=== PATIENT | female | born 1935 | race Caucasian/White ===

== ENCOUNTER 2021-09-19 15:19 | Inpatient (IN) ==
[2021-09-19] MEDS ORDERED: Aspirin 325 MG TABLET PO ONE (15:29)
[2021-09-19 16:14] LABS: Bilirubin,Urine Negative (Negative); Blood,Urine Negative (Negative); Clarity,Urine Clear (Clear); Color,Urine Colorless (Yellow); Glucose,Urine (UA) Normal (Normal); Ketones,Urine Negative (Negative); Leukocyte Esterase,Urine Negative (Negative); Nitrite,Urine Negative (Negative); Protein,Urine Negative (Neg-Trace); Specific Gravity,Urine 1.007 (1.010-1.025); Urobilinogen,Urine Normal (Normal)
[2021-09-19 16:19] LABS: Basophils % 0.2 %; Eosinophils # 0.1 K/mcL (0.0-0.6); Eosinophils % 0.9 %; Hematocrit 46.5 % (35.3-44.9); Hemoglobin 15.2 g/dL (11.5-15.4); Immature Granulocytes % 0.7 % (0-4); Lymphocytes # 1.3 K/mcL (0.6-4.6); Lymphocytes % 10.3 %; Mean Corpuscular HGB Conc 32.7 g/dL (31.6-35.5); Mean Corpuscular Hemoglobin 32.9 pg (28.0-33.3); Mean Corpuscular Volume 100.6 fL (83.0-100.0); Mean Platelet Volume 8.7 fL (9.4-12.4); Monocytes # 0.5 K/mcL (0.0-1.3); Monocytes % 4.2 %; Neutrophils # 10.5 K/mcL (1.6-8.9); Platelet Count 200 K/mcL (140-400); Red Blood Count 4.62 M/mcL (3.82-4.97); Red Cell Distribution Width 13.4 % (11.5-14.5); Segmented Neutrophils % 83.7 %; White Blood Count 12.6 K/mcL (4.3-11.1)
[2021-09-19 16:27] LABS: INR 0.9; Prothrombin Time 10.4 Seconds (9.4-12.1)
[2021-09-19 16:30] LABS: Activated Partial Thrombo Time 27.3 Seconds (26.0-36.0)
[2021-09-19 16:37] LABS: BUN/Creatinine Ratio 16 (6-26); Blood Urea Nitrogen 16 mg/dL (8-23); Calcium 9.1 mg/dL (8.6-10.3); Carbon Dioxide 32 mEq/L (23-29); Chloride 101 mEq/L (98-107); Glucose 135 mg/dL (70-105); Magnesium 1.8 mg/dL (1.6-2.6); Osmolality,Calculated 295 (280-300); Potassium 3.9 mEq/L (3.5-5.1); Sodium 141 mEq/L (136-145); Troponin I < 0.03 ng/mL (< 0.04); eGFR For African Americans > 60 (> 60); eGFR For Non-African Americans 53 (> 60)
[2021-09-19 16:51] LABS: Thyroid Stimulating Hormone 2.566 mcIU/mL (0.340-5.600)
[2021-09-19] MEDS ORDERED: Naloxone 0.4 MG/ML INJ IVP PRN (19:56)
[2021-09-19] MEDS ORDERED: Acetaminophen 325 MG TABLET PO PRN (19:56)
[2021-09-19] MEDS ORDERED: Melatonin 3 MG TABLET PO PRN (19:56)
[2021-09-19] MEDS ORDERED: *HR* HYDROcodone/Acet 5/325 mg TABLET PO PRN (19:56)
[2021-09-19] MEDS ORDERED: *HR* OxyCODONE Immed Rel 5 MG TABLET PO PRN (19:56)
[2021-09-19] MEDS ORDERED: Ondansetron ODT 4 MG TAB.RAPDIS SL PRN (19:56)
[2021-09-19] MEDS ORDERED: Perflutren Lipid Microsphere 1.3 ML in 0.9 % Sodium Chloride 8.7 ML IVP PRN (20:01)
[2021-09-19] MEDS: 0.9 % Sodium Chloride 1,000 ML IVC SCH (21:05)
[2021-09-19 23:04] LABS: Adenovirus Not Detected (Not Detect); Bordetella Pertussis Not Detected (Not Detect); Chlamydophila pneumoniae Not Detected (Not Detect); Coronavirus 229E Not Detected (Not Detect); Coronavirus HKU1 Not Detected (Not Detect); Coronavirus NL63 Not Detected (Not Detect); Coronavirus OC43 Not Detected (Not Detect); Human Metapneumovirus Not Detected (Not Detect); Human Rhinovirus/Enterovirus Not Detected (Not Detect); Influenza A Subtype 2009 H1 Not Detected (Not Detect); Influenza B Not Detected (Not Detect); Mycoplasma pneumoniae Not Detected (Not Detect); Parainfluenza Virus 1 Not Detected (Not Detect); Parainfluenza Virus 2 Not Detected (Not Detect); Parainfluenza Virus 3 Not Detected (Not Detect); Parainfluenza Virus 4 Not Detected (Not Detect); Respiratory Syncytial Virus Not Detected (Not Detect); SARS-CoV-2 Not Detected (Not Detect)
[2021-09-20 04:50] LABS: Hematocrit 45.7 % (35.3-44.9); Hemoglobin 15.2 g/dL (11.5-15.4); Mean Corpuscular HGB Conc 33.3 g/dL (31.6-35.5); Mean Corpuscular Hemoglobin 33.2 pg (28.0-33.3); Mean Corpuscular Volume 99.8 fL (83.0-100.0); Mean Platelet Volume 8.8 fL (9.4-12.4); Platelet Count 187 K/mcL (140-400); Red Blood Count 4.58 M/mcL (3.82-4.97); Red Cell Distribution Width 13.2 % (11.5-14.5)
[2021-09-20 05:09] LABS: BUN/Creatinine Ratio 16 (6-26); Blood Urea Nitrogen 15 mg/dL (8-23); Calcium 8.9 mg/dL (8.6-10.3); Carbon Dioxide 31 mEq/L (23-29); Chloride 103 mEq/L (98-107); Cholesterol 239 mg/dL (< 200); Glucose 92 mg/dL (70-105); HDL Cholesterol 81 mg/dL (40-59); LDL Cholesterol,Calculated 113 mg/dL (< 100); Magnesium 1.8 mg/dL (1.6-2.6); Osmolality,Calculated 288 (280-300); Phosphorous 3.4 mg/dL (2.7-4.5); Potassium 4.3 mEq/L (3.5-5.1); Sodium 139 mEq/L (136-145); Triglycerides 224 mg/dL (< 150); eGFR For African Americans > 60 (> 60); eGFR For Non-African Americans 58 (> 60)
[2021-09-20 05:58] LABS: Estimated Average Glucose 148 mg/dl; Hemoglobin A1C 6.8 %
[2021-09-20] MEDS: carvediloL 6.25 MG TABLET PO SCH ×2 (11:00→17:24)
[2021-09-20] MEDS: 0.9 % Sodium Chloride 1,000 ML IVC SCH (11:04)
[2021-09-21] MEDS: *HR* Enoxaparin 40 MG/0.4 ML SYRINGE SQ SCH (05:44)
[2021-09-21] MEDS ORDERED: Regadenoson 0.4 MG/5 ML SYRINGE IVP ONE (06:19)
[2021-09-21] MEDS: PARoxetine 20 MG TABLET PO SCH (10:41)
[2021-09-21] MEDS: Loratadine/Pseudophed (12 HR) 1 EACH TABLET PO SCH (10:41)
[2021-09-21] MEDS: carvediloL 6.25 MG TABLET PO SCH ×2 (10:41→16:44)
[2021-09-21] MEDS: Aspirin 81 MG TAB.CHEW PO SCH (14:57)
[2021-09-21] MEDS: Furosemide 40 MG/4 ML VIAL IVP SCH ×2 (14:57→16:44)
[2021-09-22] MEDS: *HR* Enoxaparin 40 MG/0.4 ML SYRINGE SQ SCH (05:31)
[2021-09-22 06:44] VITALS: O2SAT 93
[2021-09-22] MEDS: Aspirin 81 MG TAB.CHEW PO SCH (07:45)
[2021-09-22] MEDS: carvediloL 6.25 MG TABLET PO SCH (07:46)
[2021-09-22] MEDS: Furosemide 40 MG/4 ML VIAL IVP SCH (07:46)
[2021-09-22] MEDS: PARoxetine 20 MG TABLET PO SCH (07:46)
[2021-09-22] MEDS: Loratadine/Pseudophed (12 HR) 1 EACH TABLET PO SCH (07:46)
[2021-09-22 10:31] VITALS: BP 112/60; PULSE 75; TEMP 97.6
== END 2021-09-22 13:40 | disposition home or self-care (01) | DRG 308 ==
LOC: 3BNU 15:19 → EMEROOARM 15:19 → SUATTDRO 18:30 → 3BNU 19:25
PROVIDERS: ADMIT Family Medicine; ATTEND Registered Nurse